=== PATIENT | male | born 1975 | race African-American/Black ===

== ENCOUNTER 2019-02-18 11:46 | Inpatient (IN) | payer MEDICARE, MEDICAID ==
[~2019-02-18] VITALS: Ht 172.7 cm; Wt 120.0 kg
[2019-02-18] MEDS ORDERED: ONDANSETRON ODT 4 MG TAB PO ONE (12:15)
[2019-02-18] MEDS ORDERED: cloNIDine HCL 0.1 MG TAB PO ONE (12:15)
[2019-02-18] MEDS ORDERED: SODIUM CHLORIDE 0.9% 1,000 ML IVB ONE (12:53)
[2019-02-18 13:19] LABS: Basophils # (auto) 0.1 uL; Basophils % (auto) 1.4 % (0.0-2.0); Eosinophils # (auto) 0.3 uL; Eosinophils % (auto) 2.9 % (0.0-7.0); Hematocrit 52.5 % (41.0-53.0); Hemoglobin 17.2 g/dL (13.5-17.5); Lymphocytes # (auto) 2.6 uL; Lymphocytes % (auto) 29.5 % (10.0-50.0); Mean Corpuscular Hemoglobin 29.4 pg (28.0-32.0); Mean Corpuscular Hgb Conc. 32.7 g/dL (32.0-36.0); Mean Corpuscular Volume 90.1 fL (80.0-100.0); Monocytes # (auto) 0.7 uL; Monocytes % (auto) 7.9 % (0.0-12.0); Neutrophils # (auto) 5.1 uL; Neutrophils % (auto) 58.3 % (37.0-80.0); Nucleated Red Blood Cells % 0.1 %; Platelet Count (auto) 411 10^3/uL (140-450); Red Blood Cells 5.83 10^6/uL (4.5-5.90); Red Cell Distribution Width 17.1 % (11.8-14.3); White Blood Cell 8.8 10^3/uL (4.4-10.8)
[2019-02-18 13:51] LABS: Alanine Aminotransferase 38 U/L (16-61); Albumin 3.6 g/dL (3.4-5.0); Amylase 126 U/L (25-115); Anion Gap 5 (5-15); Aspartate Aminotransferase 19 U/L (15-37); BUN/Creatinine Ratio 11.9; Bilirubin, Total 0.3 mg/dL (0.2-1.0); Blood Urea Nitrogen 12 mg/dL (7-18); Calcium 9.3 mg/dL (8.5-10.1); Carbon Dioxide 27 mmol/L (21-32); Chloride 108 mmol/L (98-107); GFR African American 104 mL/min; GFR Non-African American 86 mL/min; Glucose 100 mg/dL (74-106); Lipase 245 U/L (73-393); Magnesium 2.1 mg/dL (1.6-2.6); Potassium 4.2 mmol/L (3.5-5.1); Sodium 140 mmol/L (136-145); Total Protein 8.7 g/dL (6.4-8.2)
[2019-02-18 13:56] LABS: Alkaline Phosphatase 83 U/L (45-117)
[2019-02-18] MEDS: PROMETHAZINE HCL 25 MG/ML 1ML IV PRN ×2 (13:57→19:57)
[2019-02-18] MEDS ORDERED: MEPERIDINE HCL (25 MG/ML) 1ML VIAL IV ONE (14:00)
[2019-02-18] MEDS ORDERED: hydrALAZINE HCL 20 MG/ML VL IV ONE (14:30)
[2019-02-18 16:54] LABS: Urine Bacteria FEW /hpf (None Seen); Urine Blood Negative /uL (Negative); Urine Specific Gravity 1.015 (1.001-1.035); Urine WBC 1 /hpf (0 - 3)
[2019-02-18 17:14] LABS: Amphetamine Screen, Urine NEGATIVE (NEGATIVE); Barbiturate Scree,Urine NEGATIVE (NEGATIVE); Benzodiazephine Screen, Urine NEGATIVE (NEGATIVE); Cannabinoid Screen, Urine POSITIVE (NEGATIVE); Cocaine Screen, Urine NEGATIVE (NEGATIVE); Opiate Scree,Urine NEGATIVE (NEGATIVE); Phencyclidine Screen, Urine NEGATIVE (NEGATIVE)
[2019-02-18 17:21] LABS: Alcohol, Urine < 3.0 mg/dL (0-5)
[2019-02-18] MEDS ORDERED: NITROGLYCERIN 0.4 MG SL TAB SL PRN (19:00)
[2019-02-18] MEDS ORDERED: ACETAMINOPHEN 500 MG TAB PO PRN (19:00)
[2019-02-18] MEDS ORDERED: MORPHINE SULF INJ 2 MG/ML SYRINGE 1ML IV PRN (19:00)
[2019-02-18] MEDS: HYDROcodone-ACET 5/325MG TAB PO PRN (19:39)
[2019-02-18] MEDS: hydrALAZINE HCL 20 MG/ML VL IV SCH (19:57)
[2019-02-18] MEDS: ONDANSETRON HCL 4 MG/2 ML VIAL IV PRN (21:15)
[2019-02-18] MEDS ORDERED: KETOROLAC TROMETH 30 MG/ML 1ML VIAL IV ONE (21:30)
[2019-02-18] MEDS: CARVEDILOL 3.125 MG TAB PO SCH (21:37)
[2019-02-18] MEDS: BENAZEPRIL HCL 10 MG TAB PO SCH (21:38)
[2019-02-18] MEDS ORDERED: DILTIAZEM HCL 25 MG/5 ML VIAL IV ONE (22:30)
[2019-02-19] VITALS (8 sets, daily range): BP systolic 120–181; BP diastolic 73–96
[2019-02-19] MEDS ORDERED: ENALAPRILAT 1.25 MG/ML-1ML VIAL IV ONE (00:15)
--- NOTE | 2019-02-19 01:55 | NUR ---
PATIENT ASKING FOR CELL PHONE Upon patient transferring from the gurney to the bed. Patient asked tech Jay if his cell phone was left in the gurney. No cell phone was found in the gurney. Tech Jay asked patient if son took his cell phone home. Per patient son did not take his cell phone home. Belongings were checked by elisabet Thompson and this RN, no cell phone was found in patients belongings. Per elisabet Thompson he will look down in ER to see if patients cell phone was left down there. Will follow up.
--- NOTE | 2019-02-19 01:55 | NUR ---
Telemetry admit from ER JOSE RAFAEL SNEED admitted to Telemetry unit. Patient oriented to DEVANG WILSON, primary RN, unit, room, bed, and unit policies regarding patient care and visiting hours. Patient now on continuous telemetry monitoring, tele box # 2 and telemetry reading on arrival to unit is sinus rhythm. Patient weighed by bedscale and encouraged to call as needed. All questions and concerns addressed, reinforcement needed. Bed is locked in lowest position, side rails x 2 are up, call light is within reach, and bed alarm is on.
--- NOTE | 2019-02-19 02:14 | NUR ---
HOSPITALIST PAGED RE: ELEVATED BLOOD PRESSURE Hospitalist paged regarding elevated blood pressure. Blood pressure is 181/96, heart rate 73. Awaiting call back.
[2019-02-19] MEDS ORDERED: LABETALOL HCL 5 MG/ML ML 20ML VIAL IV ONE (02:30)
--- NOTE | 2019-02-19 02:30 | NUR ---
HOSPITALIST RETURNED CALL RE: ELEVATED BLOOD PRESSURE Notified DIRECTOR OF ENTERPRISE ARCHITECTURE Brown of patients blood pressure 181/96 and heart rate 73. Made DIRECTOR OF ENTERPRISE ARCHITECTURE Brown aware that patient states he is in 10/10 pain and patient states the ordered [place] does not help with the pain. Orders for Labetalol 10mg IV x1 received. Order read back and verified. Will carry out order as received.
--- NOTE | 2019-02-19 02:30 | NUR ---
UNABLE TO PERFORM ACCURATE ADMISSION ASSESSMENT/HOME MEDICATION RECONCILIATION Unable to perform accurate admission assessment. During the admission assessment the patient was very sleepy. Upon asking the patient questions, the patient would open his eyes, answer a questions, and then close his eyes and go back to sleep. This RN asked patient if he was tired and patient nodded his head and continued to keep his eyes closed. Patient was able to tell this RN a few of his home medications. Instructed patient to ask his son if he could bring in a copy of his medications in the morning, patient did not verbalize understanding.
--- NOTE | 2019-02-19 02:50 | NUR ---
IV REMOVAL IV to right hand DC'd due to IV resistant to flushing. IV DC'd with clean sterile technique, catheter fully intact. Pressure dressing applied to site. Patient tolerated well.
--- NOTE | 2019-02-19 03:00 | NUR ---
IV insertion IV access obtained, via clean sterile technique by inserting 22 gauge catheter at left hand after 2 attempts. IV secured properly. No trauma to site. Patient tolerated well.
[2019-02-19] MEDS: ONDANSETRON HCL 4 MG/2 ML VIAL IV PRN ×4 (03:04→17:40)
[2019-02-19] MEDS: HYDROcodone-ACET 5/325MG TAB PO PRN ×3 (03:07→09:17)
--- NOTE | 2019-02-19 03:58 | NUR ---
CALLED ER TO FOLLOW UP ON MISSING CELL PHONE Called ER to follow up on whether or not patients cell phone was left in the ER. Per tech Jay, no cell phone was found in the ER.
[2019-02-19] MEDS ORDERED: OXYC-650 PO (04:21)
[2019-02-19] MEDS ORDERED: ALPR0.25 PO (04:21)
[2019-02-19] MEDS ORDERED: PANT40TA2 PO (04:21)
--- NOTE | 2019-02-19 04:21 | NUR ---
ROUNDS Patient laying on his right side, eyes closed, even and unlabored respirations noted. No signs/symptoms of distress or pain noted at this time. Bed is locked in lowest position, side rails x 2 are up, call light is within reach, and bed alarm is on.
[2019-02-19] MEDS: hydrALAZINE HCL 20 MG/ML VL IV SCH ×3 (05:17→17:40)
[2019-02-19] MEDS: PROMETHAZINE HCL 25 MG/ML 1ML IV PRN (05:24)
[2019-02-19 06:39] LABS: Cholesterol 195 mg/dL (< 200)
[2019-02-19 06:42] LABS: HDL Cholesterol 44 mg/dL (40-59); LDL Cholesterol 141 mg/dL (< 100); Triglycerides 65 mg/dL (< 150)
--- NOTE | 2019-02-19 08:00 | NUR ---
Opening Shift Note Assumed care of patient, awake and alert. No S/S of distress/SOB, 5/10 abdominal pain. Instructed on POC and to call for assist PRN, will continue to monitor for changes Q1hr and PRN.
[2019-02-19] MEDS: CARVEDILOL 3.125 MG TAB PO SCH (10:01)
[2019-02-19] MEDS: BENAZEPRIL HCL 10 MG TAB PO SCH (10:01)
--- NOTE | 2019-02-19 12:42 | NUR ---
Complained of severe abdominal pain associated with vomiting. Dr. Interiano paged. Waiting for call back.
[2019-02-19] MEDS ORDERED: PANTOPRAZOLE 40 MG/10 ML VIAL INJ IV ONE (13:15)
[2019-02-19] MEDS: HYDROmorphone HCL 2 MG/ML VL IV PRN ×2 (13:25→17:40)
--- NOTE | 2019-02-19 13:40 | NUR ---
IV TO THE LEFT HAND Pt stated that he turned in bed and realized that the IV came out. Pressure applied to site and 22g catheter is fully intact. Patient is not reporting any pain or discomfort.
--- NOTE | 2019-02-19 13:50 | NUR ---
IV Insertion (R) Wrist. IV access obtained to the right wrist, via clean sterile technique by inserting a 22 gauge catheter after 1 attempt(s). IV secured properly. No trauma to site. Patient tolerated well.
[2019-02-19 14:26] LABS: INR 1.01 (0.9-1.15); Partial Thromboplastin Time 26.5 sec (23.64-32.05)
--- NOTE | 2019-02-19 18:05 | NUR ---
AMA Note JOSE RAFAEL SNEED states they want to leave the hospital Against Medical Advice (AMA). Patient encouraged to stay for further treatment/stabilization. Dr. Man consumer insights specialist hospitalist notified of patient's wishes. Charge Nurse Simon made aware of patient's wishes. Patient advised of the risks and benefits of leaving AMA. Patient verbalized understanding. Patient encouraged to return to the ER if symptoms do not improve or worsen.
[2019-02-19] MEDS ORDERED: PANTOPRAZOLE 40 MG TAB PO SCH (22:00)
[2019-02-20] MEDS ORDERED: PANTOPRAZOLE 40 MG/10 ML VIAL INJ IV SCH (10:00)
== END 2019-02-19 18:10 | disposition left against medical advice (07) | DRG 384 ==
LOC: ER 11:46 → TELE 11:47 → TELE-EAST 02-19 01:53
PROVIDERS: ADMIT Nurse Practitioner Acute Care; ATTEND Internal Medicine
DX: K27.9 Peptic ulcer, site unspecified, unspecified as acute or chronic, without hemorrhage or perforation (principal); I16.9 Hypertensive crisis, unspecified; Z68.41 Body mass index [BMI] 40.0-44.9, adult; J44.9 Chronic obstructive pulmonary disease, unspecified; I50.9 Heart failure, unspecified; I11.0 Hypertensive heart disease with heart failure; H54.62 Unqualified visual loss, left eye, normal vision right eye; Z53.29 Procedure and treatment not carried out because of patient's decision for other reasons; K29.70 Gastritis, unspecified, without bleeding; E66.9 Obesity, unspecified; E11.9 Type 2 diabetes mellitus without complications; E78.5 Hyperlipidemia, unspecified; F17.210 Nicotine dependence, cigarettes, uncomplicated; K21.9 Gastro-esophageal reflux disease without esophagitis; Z91.14 Patient's other noncompliance with medication regimen; Z88.5 Allergy status to narcotic agent; Z82.49 Family history of ischemic heart disease and other diseases of the circulatory system; Z90.49 Acquired absence of other specified parts of digestive tract; Z83.3 Family history of diabetes mellitus
CPT/HCPCS: 36415; 71045; 74176; 80053; 80061; 80307; 81001; 82150; 83036; 83690; 83735; 84484; 85025; 85610; 85730; 87081; 93005; C9113; G0378; J1885; J2405; Q0162

== ENCOUNTER 2019-05-10 13:44 | Emergency (ER) | payer MEDICARE, MEDICAID ==
[~2019-05-10] VITALS: Ht 172.7 cm; Wt 113.4 kg
[~2019-05-10 13:44] MED LIST: ALPR0.25 PO; OXYC-650 PO; PANT40TA2 PO
[2019-05-10 18:16] VITALS: BP 161/110
[2019-05-10] MEDS ORDERED: ALBUTEROL SULF 2.5 MG/0.5ML(0.5%) NEB SOLN NEB ONE (19:15)
[2019-05-10] MEDS ORDERED: IPRATROPIUM BROM 0.5 MG/2.5ML INH SOL NEB ONE (19:15)
[2019-05-10] MEDS ORDERED: cefTRIAXone SOD 1,000 MG VL IM ONE (19:15)
== END 2019-05-10 20:09 | disposition home or self-care (01) ==
LOC: ER 13:48
DX: J32.9 Chronic sinusitis, unspecified (principal); J40 Bronchitis, not specified as acute or chronic; E11.9 Type 2 diabetes mellitus without complications; E78.5 Hyperlipidemia, unspecified; I10 Essential (primary) hypertension
CPT/HCPCS: 94640; 96372; 99283; J0696; J7611; J7644